=== PATIENT | male | born 1955 | race Caucasian/White ===

== ENCOUNTER → 2023-10-18 12:45 | Outpatient (REF) | payer MEDICARE, SELFPAY ==
[2023-10-18 14:24] LABS: PSA, Total - Diagnostic 4.49 ng/ml (0.0-4.0)
== END ==
LOC: REG 12:45
PROVIDERS: ATTENDING PHYSICIAN Specialist; FAMILY PHYSICIAN Internal Medicine Geriatric Medicine
DX: R97.20 Elevated prostate specific antigen [PSA] (principal)
CPT/HCPCS: 36415; 84153

== ENCOUNTER → 2023-12-16 07:30 | Outpatient (REF) | payer MEDICARE, SELFPAY | LOC: MRI 3T 07:30 | PROVIDERS: ATTENDING PHYSICIAN Specialist; FAMILY PHYSICIAN Internal Medicine Geriatric Medicine | DX: R97.20 Elevated prostate specific antigen [PSA] (principal); Z80.42 Family history of malignant neoplasm of prostate | CPT/HCPCS: 72197; A9575 ==

== ENCOUNTER → 2023-12-27 17:05 | Outpatient (REF) | payer MEDICARE, SELFPAY | LOC: CLAB 17:05 | PROVIDERS: ATTENDING PHYSICIAN Specialist | DX: R97.20 Elevated prostate specific antigen [PSA] (principal) | CPT/HCPCS: 88305; 88344 ==

== ENCOUNTER 2024-02-07 07:44 | Outpatient (RCR) | payer MEDICARE, SELFPAY | END 2024-02-07 23:59 | disposition home or self-care (01) | LOC: RPT 07:44 | PROVIDERS: ATTENDING PHYSICIAN Specialist; FAMILY PHYSICIAN Internal Medicine Geriatric Medicine | DX: M62.89 Other specified disorders of muscle (principal); C61 Malignant neoplasm of prostate; Z73.6 Limitation of activities due to disability | CPT/HCPCS: 97161; 97530 ==

== ENCOUNTER 2024-03-24 07:58 | Inpatient (IN) | payer MEDICARE, SELFPAY ==
[2024-03-18 06:46] VITALS: BMI 24.5
[2024-03-18 09:31] LABS: Hematocrit 44.8 % (39.0-52.0); Hemoglobin 15.7 g/dL (13.0-18.0); Mean Corpuscular Hgb 31.5 pg (27.0-31.0); Mean Platelet Volume 11.2 fL (7.4-10.4); Platelet Count 172 10^3/uL (130-400); Red Blood Cell Count 4.98 10^6/uL (4.70-6.10); Red Cell Dist. Width 12.1 % (11.5-14.5); White Blood Cell Count 5.9 10^3/uL (4.8-10.8)
[2024-03-18 09:35] LABS: INR 1.08
[2024-03-18 09:36] LABS: APTT 30.1 Sec (23.4-35.0)
[2024-03-18 10:24] LABS: Blood Urea Nitrogen 18 mg/dl (9-20); Calcium 10.1 mg/dl (8.4-10.2); Carbon Dioxide 27 mmol/L (22-30); Chloride 103 mmol/L (98-107); Estimated Creatinine Clearance 64 ml/min; Glucose 82 mg/dl (70-99); Potassium 4.7 mmol/L (3.5-5.1); Sodium 141 mmol/L (135-145); eGFR > 60.00
[2024-03-18 10:27] LABS: Urine Albumin Negative (Neg - Trace); Urine Bilirubin Negative (Negative); Urine Character Clear (Clear); Urine Color Straw; Urine Glucose Negative (Negative); Urine Ketone Negative (Negative); Urine Leukocyte Negative (Negative); Urine Nitrite Negative (Negative); Urine Occult Blood Negative (Negative); Urine Specific Gravity 1.005 (<1.030); Urine Urobilinogen Negative (Neg - 1+)
[2024-03-24] VITALS (18 sets, daily range): BP systolic 96–151; BP diastolic 54–100; BMI 24.5
[2024-03-24] MEDS: NORMOSOL-R 1000 IV ×2 (08:28→15:00)
[2024-03-24] MEDS: NEBCIN 480 MG/100 ML ENEMA 1 BOTTLE RECTAL (08:29)
--- NOTE | 2024-03-24 12:18 | W.IMMPOSTOP ---
Surgical Immed Post Op Note
-
Primary Surgeon: Jose Manuel
Assisting Surgeon: Kolby
Pre-op Diagnosis: Prostate cancer
Post-op Diagnosis: Same
Procedure Performed: Radical perineal prostatectomy, bladder neck tubularization
Anesthesia Type: GET
Specimen / Cultures: prostate/adnexa, bladder neck and urethral margins
Estimated Blood Loss: 100 ml
Complications: None
[2024-03-24 13:05] LABS: Hematocrit 42.1 % (39.0-52.0); Hemoglobin 14.7 g/dL (13.0-18.0)
[2024-03-24 13:20] LABS: Blood Urea Nitrogen 14 mg/dl (9-20); Calcium 9.1 mg/dl (8.4-10.2); Carbon Dioxide 26 mmol/L (22-30); Chloride 104 mmol/L (98-107); Estimated Creatinine Clearance 64 ml/min; Glucose 113 mg/dl (70-99); Potassium 4.9 mmol/L (3.5-5.1); Sodium 140 mmol/L (135-145); eGFR > 60.00
[2024-03-24] MEDS: TORADOL 15 MG IV ×2 (13:28→19:54)
[2024-03-24] MEDS: DETROL LA 4 MG PO (13:29)
[2024-03-24] MEDS: DILAUDID 0.5 MG IV (16:25)
--- NOTE | 2024-03-24 17:55 | PTCARENOTE ---
Patient received from PACU in bed; IVF infusing; Surgical site assessed with BATCH FREEZER; Tyrese drain present; 4x4 gauze with ABD pads and tape present; Patient states pain is a 3 out of 10 and this is acceptable to him; Patient denies N/V at this
time; Patient awake and alert; Call neves within reach; Spouse at bedside; Bed in lowest position, wheels locked; Assessment ongoing
--- NOTE | 2024-03-24 18:00 | PTCARENOTE ---
Patient noted to be tachycardic since being in PACU; Per WET [employer] CONVEYOR TENDER Dr. Richard is aware; Plan of care ongoing
[2024-03-24] MEDS: COLACE PO (18:06)
[2024-03-24] MEDS: TYLENOL 650 MG PO (19:54)
[2024-03-24] MEDS: POLYSPORIN/DOUBLE ANTIBIOTIC 1 APPLIC TOPICAL (19:55)
[2024-03-24] MEDS: SINGULAIR 10 MG PO (21:23)
[2024-03-24] MEDS: VALIUM INJECTION 5 MG IV (21:23)
[2024-03-24] MEDS: PEPCID 20 MG PO (21:23)
[2024-03-24] MEDS: ZETIA 10 MG PO (21:23)
[2024-03-25] MEDS: NORMOSOL-R 1000 IV ×2 (00:22→10:02)
[2024-03-25] MEDS: TORADOL 15 MG IV ×4 (00:23→18:50)
[2024-03-25] MEDS: TYLENOL 650 MG PO ×4 (01:14→18:49)
[2024-03-25 03:06] VITALS: BP 117/76
[2024-03-25 07:35] LABS: Hematocrit 39.2 % (39.0-52.0); Hemoglobin 13.7 g/dL (13.0-18.0); Mean Corp Hgb Conc. 34.9 g/dL (33.0-37.0); Mean Corpuscular Hgb 32.1 pg (27.0-31.0); Mean Corpuscular Volume 91.8 fL (80.0-94.0); Mean Platelet Volume 10.6 fL (7.4-10.4); Platelet Count 149 10^3/uL (130-400); Red Blood Cell Count 4.27 10^6/uL (4.70-6.10); Red Cell Dist. Width 12.3 % (11.5-14.5); White Blood Cell Count 16.9 10^3/uL (4.8-10.8)
[2024-03-25 07:45] VITALS: BP 130/79
--- NOTE | 2024-03-25 08:09 | W.PN.SURGUPD ---
Surgical Update
Surgical Update
Stable 1 day s/p radical perineal prostatectomy
Afeb
VSS
Modest leukocytosis
Urine clear
Dressing dry
Tolerating diet
---
Increase activity today
[2024-03-25] MEDS: VITAMIN D3 (cholecalciferol) 125 MCG PO (08:13)
[2024-03-25] MEDS: ZYRTEC 10 MG PO (08:14)
[2024-03-25] MEDS: COLACE 100 MG PO ×3 (08:14→18:50)
[2024-03-25] MEDS: PROTONIX 40 MG PO (08:14)
[2024-03-25] MEDS: POLYSPORIN/DOUBLE ANTIBIOTIC 1 APPLIC TOPICAL ×2 (08:19→20:20)
[2024-03-25 09:24] LABS: Blood Urea Nitrogen 18 mg/dl (9-20); Calcium 9.5 mg/dl (8.4-10.2); Carbon Dioxide 23 mmol/L (22-30); Chloride 107 mmol/L (98-107); Estimated Creatinine Clearance 71 ml/min; Glucose 104 mg/dl (70-99); Potassium 4.4 mmol/L (3.5-5.1); Sodium 142 mmol/L (135-145); eGFR > 60.00
[2024-03-25] MEDS: ROCEPHIN 1000 MG IV (10:00)
[2024-03-25] MEDS: STERILE WATER FOR INJECTION 10 ML IV (10:01)
[2024-03-25 11:40] VITALS: BP 127/78
[2024-03-25] MEDS: NORMOSOL-R IV (14:17)
[2024-03-25 15:35] VITALS: BP 127/71
[2024-03-25] MEDS: NON-FORMULARY ITEM 1 UNIT NASAL (20:18)
[2024-03-25] MEDS: SINGULAIR 10 MG PO (21:59)
[2024-03-25] MEDS: PEPCID 20 MG PO (21:59)
[2024-03-25] MEDS: ZETIA 10 MG PO (21:59)
[2024-03-25 23:12] VITALS: BP 115/63
[2024-03-26] MEDS: TYLENOL 650 MG PO (02:36)
[2024-03-26] MEDS: PERCOCET 5/325 1 TABLET PO ×3 (06:04→14:11)
[2024-03-26] MEDS: VITAMIN D3 (cholecalciferol) 125 MCG PO (07:27)
[2024-03-26] MEDS: ZYRTEC 10 MG PO (07:27)
[2024-03-26] MEDS: PROTONIX 40 MG PO (07:27)
[2024-03-26] MEDS: COLACE 100 MG PO ×2 (07:27→12:14)
[2024-03-26] MEDS: NON-FORMULARY ITEM 1 UNIT NASAL ×2 (07:28)
[2024-03-26] MEDS: POLYSPORIN/DOUBLE ANTIBIOTIC 1 APPLIC TOPICAL (07:33)
[2024-03-26 07:40] VITALS: BP 146/78
--- NOTE | 2024-03-26 08:38 | CM ---
met with patient at bedside.patient lives with his in [facility] with 1 jo,his bed and bath is on the second level,he amb i,is i with his adlhis pcp is dr lagunas.confirmed his pharmacy.
patient with prostate cancer is sp radical perineal prostatectomy,pain is controlled,he has a keenan.referral made to gena with [facility] for keenan and wound management.plan dc home with [facility].wfe to transport home.
[2024-03-26] MEDS: ROCEPHIN 1000 MG IV (10:02)
[2024-03-26] MEDS: STERILE WATER FOR INJECTION 10 ML IV (10:02)
--- NOTE | 2024-03-26 11:03 | W.DS.TRANS ---
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
-
Discharge Instructions:
Sleep Apnea Risk Low
Instructions:
Stand-Alone Forms:
Changes to Home Medications: No
Discharge Medications:
DC Medications w/original date entered in [employer]
Mold And Pollen Allergy Shots 1 unit SC Q5W Allergies 03/18/24
Yellow Jacket Venom Treatment 1 unit SC Q5W Allergies 03/18/24
aspirin 81 mg tablet,delayed release 81 mg PO DAILY Blood Clot Prevention/Tx 03/18/24
azelastine 137 mcg (0.1 %) nasal spray 2 spray intranasal BID Congestion 03/18/24
cetirizine 10 mg tablet (Zyrtec) 10 mg PO DAILY Allergies 03/18/24
cholecalciferol (vitamin D3) 125 mcg (5,000 unit) tablet (Vitamin D3) 125 mcg PO DAILY Supplement 03/18/24
evolocumab 140 mg/mL subcutaneous syringe (Repatha Syringe) 140 mg SC Q2W High Cholesterol 03/18/24
ezetimibe 10 mg tablet (Zetia) 10 mg PO HS High Cholesterol 03/18/24
famotidine 20 mg tablet 20 mg PO HS Gastrointestinal Issue 03/18/24
fluticasone propionate 50 mcg/actuation nasal spray,suspension 1 spray intranasal DAILY Congestion 03/18/24
glucosamine-chondroitin 250 mg-200 mg tablet (Osteo Bi-Flex) 2 tab PO DAILY Supplement 03/18/24
montelukast 10 mg tablet 10 mg PO HS asthma 03/18/24
omeprazole 40 mg capsule,delayed release 40 mg PO DAILY Gastrointestinal Issue 03/18/24
albuterol 90 mcg/actuation aerosol inhaler 90 mcg inhalation PRN PRN allergies 03/24/24
Home Medication Changes
Pending Results: No
Total time spent discharging patient (in min): 25 minutes
--- NOTE | 2024-03-26 11:34 | CM ---
Reviewed the chart notes and spoke with the patient and his spouse at the bedside. Patient is for discharge. Patient and spouse requesting [facility]. Referral sent. Patient's spouse will transport the patient home. CM continues to be available to
patient/family and is monitoring medical plan for needs at discharge.
Plan: Discharge to home with VN services.
--- NOTE | 2024-03-26 13:33 | PTCARENOTE ---
Patient and spouse educated on keenan leg bag and overnight bag; Patient given supplies for home; Both patient and spouse verbalized understanding of instruction
[2024-03-26 14:35] VITALS: BP 118/74
== END 2024-03-26 14:53 | disposition home health service (06) | DRG 708 ==
LOC: 2 SOUTH 07:58
PROVIDERS: ADMITTING PHYSICIAN Specialist; FAMILY PHYSICIAN Internal Medicine Geriatric Medicine
PROC: 0VT04ZZ Resection of Prostate, Percutaneous Endoscopic Approach (ICD-10-PCS; 2024-03-24)
PROC: 0VT34ZZ Resection of Bilateral Seminal Vesicles, Percutaneous Endoscopic Approach (ICD-10-PCS; 2024-03-24)
PROC: 0VTQ4ZZ Resection of Bilateral Vas Deferens, Percutaneous Endoscopic Approach (ICD-10-PCS; 2024-03-24)
DX: C61 Malignant neoplasm of prostate (principal)
CPT/HCPCS: 88305; 88309; 88332; 36415; 80048; 81003; 85014; 85018; 85027; 85610; 85730; 86850; 86900; 86901; 88331; 93005; A4648

== ENCOUNTER 2024-05-05 06:41 | Outpatient (RCR) | payer MEDICARE, SELFPAY | END 2024-05-05 23:59 | disposition home or self-care (01) | LOC: RPT 06:41 | PROVIDERS: ATTENDING PHYSICIAN Specialist; FAMILY PHYSICIAN Internal Medicine Geriatric Medicine | DX: C61 Malignant neoplasm of prostate (principal); M62.89 Other specified disorders of muscle; N39.3 Stress incontinence (female) (male); R10.2 Pelvic and perineal pain; Z73.6 Limitation of activities due to disability | CPT/HCPCS: 97110; 97140; 97164; 97530 ==

== ENCOUNTER → 2024-05-05 07:21 | Outpatient (REF) | payer MEDICARE, SELFPAY ==
[2024-05-05 08:48] LABS: % Eosinophils 4.4 % (0-6); % Immature Granulocytes 0.2 % (0-0.5); % Lymphocytes 34.9 % (20.5-51.1); % Monocytes 11.3 % (1.7-9.3); % Neutrophils 48.2 % (42.2-75.2); Absolute Basophils 0.1 10^3/uL (0-0.2); Absolute Eosinophils 0.3 10^3/uL (0-0.7); Absolute Lymphocytes 2.1 10^3/uL (1.2-3.4); Absolute Monocytes 0.7 10^3/uL (0.1-0.6); Absolute Neutrophils 2.9 10^3/uL (1.4-6.5); Hematocrit 46.7 % (39.0-52.0); Hemoglobin 16.5 g/dL (13.0-18.0); Mean Corp Hgb Conc. 35.3 g/dL (33.0-37.0); Mean Corpuscular Hgb 31.7 pg (27.0-31.0); Mean Corpuscular Volume 89.6 fL (80.0-94.0); Mean Platelet Volume 10.7 fL (7.4-10.4); Nucleated Red Blood Cells % 0 % (-); Platelet Count 161 10^3/uL (130-400); Red Blood Cell Count 5.21 10^6/uL (4.70-6.10); White Blood Cell Count 5.9 10^3/uL (4.8-10.8)
[2024-05-05 09:02] LABS: ALT (SGPT) 46 U/L (0-50); AST (SGOT) 38 U/L (17-59); Albumin 5.3 g/dl (3.5-5.0); Alkaline Phosphatase 76 U/L (38-126); Blood Urea Nitrogen 17 mg/dl (9-20); Calcium 10.5 mg/dl (8.4-10.2); Carbon Dioxide 26 mmol/L (22-30); Chloride 104 mmol/L (98-107); Glucose 83 mg/dl (70-99); Sodium 142 mmol/L (135-145); Total Bilirubin 1.5 mg/dl (0.2-1.3); Total Protein 7.8 g/dl (6.3-8.2); eGFR > 60.00
[2024-05-05 09:36] LABS: Potassium 4.1 mmol/L (3.5-5.1)
[2024-05-06 22:30] LABS: Beef <0.10 kU/L (<=0.34); Garlic <0.10 kU/L (<=0.34); Pork <0.10 kU/L (<=0.34)
[2024-05-06 22:40] LABS: Clam <0.10 kU/L (<=0.34); Codfish <0.10 kU/L (<=0.34); Corn <0.10 kU/L (<=0.34); Egg White <0.10 kU/L (<=0.34); IgE 26 kU/L (<=214); Milk (Cow's) <0.10 kU/L (<=0.34); Peanut <0.10 kU/L (<=0.34); Scallop <0.10 kU/L (<=0.34); Shrimp <0.10 kU/L (<=0.34); Soybean <0.10 kU/L (<=0.34); Walnut/Black Walnut <0.10 kU/L (<=0.34); Wheat <0.10 kU/L (<=0.34)
== END ==
LOC: REG 07:21
PROVIDERS: ATTENDING PHYSICIAN Internal Medicine; FAMILY PHYSICIAN Internal Medicine Geriatric Medicine
DX: Z91.018 Allergy to other foods (principal)
CPT/HCPCS: 36415; 80053; 82785; 83520; 85025; 86003; 86160

== ENCOUNTER 2024-06-05 13:38 | Outpatient (RCR) | payer MEDICARE, SELFPAY | END 2024-06-05 23:59 | disposition home or self-care (01) | LOC: RPT 13:38 | PROVIDERS: ATTENDING PHYSICIAN Specialist; FAMILY PHYSICIAN Internal Medicine Geriatric Medicine | DX: C61 Malignant neoplasm of prostate (principal); M62.89 Other specified disorders of muscle; N39.3 Stress incontinence (female) (male); R10.2 Pelvic and perineal pain; Z73.6 Limitation of activities due to disability | CPT/HCPCS: 97110; 97140; 97164; 97530 ==

== ENCOUNTER → 2024-06-09 07:16 | Outpatient (REF) | payer MEDICARE, SELFPAY ==
[2024-06-09 08:57] LABS: ALT (SGPT) 46 U/L (0-50); AST (SGOT) 37 U/L (17-59); Albumin 4.8 g/dl (3.5-5.0); Alkaline Phosphatase 66 U/L (38-126); Blood Urea Nitrogen 18 mg/dl (9-20); Calcium 10.1 mg/dl (8.4-10.2); Carbon Dioxide 23 mmol/L (22-30); Chloride 106 mmol/L (98-107); Glucose 77 mg/dl (70-99); Potassium 4.4 mmol/L (3.5-5.1); Sodium 146 mmol/L (135-145); Total Bilirubin 1.6 mg/dl (0.2-1.3); Total Protein 7.1 g/dl (6.3-8.2); eGFR > 60.00
[2024-06-09 09:10] LABS: PSA, Total - Diagnostic < 0.06 ng/ml (0.0-4.0)
[2024-06-11 11:10] LABS: IgE 28 kU/L (<=214)
[2024-06-11 22:07] LABS: 24 Hour Urine Total Volume Random mL; Urine Collection Length Random hr; Urine Free Lambda Light Chains 1.92 mg/L (0.00-3.79)
== END ==
LOC: REG 07:16
PROVIDERS: ATTENDING PHYSICIAN Specialist; FAMILY PHYSICIAN Internal Medicine Geriatric Medicine; REFERRING PHYSICIAN Internal Medicine
DX: C61 Malignant neoplasm of prostate (principal); R73.9 Hyperglycemia, unspecified; T78.3XXD Angioneurotic edema, subsequent encounter
CPT/HCPCS: 36415; 80053; 82784; 82785; 83521; 84153; 84155; 84156; 84165; 86334; 86335

== ENCOUNTER 2024-07-14 06:39 | Outpatient (RCR) | payer MEDICARE, SELFPAY | END 2024-07-14 23:59 | disposition home or self-care (01) | LOC: RPT 06:39 | PROVIDERS: ATTENDING PHYSICIAN Specialist; FAMILY PHYSICIAN Internal Medicine Geriatric Medicine | DX: N39.3 Stress incontinence (female) (male) (principal); M62.89 Other specified disorders of muscle; C61 Malignant neoplasm of prostate; R10.2 Pelvic and perineal pain; Z73.6 Limitation of activities due to disability | CPT/HCPCS: 97140; 97530 ==

== ENCOUNTER → 2024-08-27 07:03 | Outpatient (REF) | payer MEDICARE, SELFPAY ==
[2024-08-27 07:49] LABS: % Basophils 0.7 % (0-2); % Eosinophils 2.6 % (0-6); % Immature Granulocytes 0.4 % (0-0.5); % Lymphocytes 41.5 % (20.5-51.1); % Monocytes 10.9 % (1.7-9.3); % Neutrophils 43.9 % (42.2-75.2); Absolute Eosinophils 0.2 10^3/uL (0-0.7); Absolute Lymphocytes 2.4 10^3/uL (1.2-3.4); Absolute Monocytes 0.6 10^3/uL (0.1-0.6); Absolute Neutrophils 2.5 10^3/uL (1.4-6.5); Hematocrit 45.4 % (39.0-52.0); Hemoglobin 15.8 g/dL (13.0-18.0); Mean Corp Hgb Conc. 34.8 g/dL (33.0-37.0); Mean Corpuscular Hgb 31.3 pg (27.0-31.0); Mean Corpuscular Volume 90.1 fL (80.0-94.0); Mean Platelet Volume 10.2 fL (7.4-10.4); Nucleated Red Blood Cells % 0 % (-); Platelet Count 153 10^3/uL (130-400); Red Blood Cell Count 5.04 10^6/uL (4.70-6.10); Red Cell Dist. Width 12.1 % (11.5-14.5); White Blood Cell Count 5.7 10^3/uL (4.8-10.8)
[2024-08-27 08:21] LABS: ALT (SGPT) 48 U/L (0-50); AST (SGOT) 37 U/L (17-59); Albumin 4.9 g/dl (3.5-5.0); Alkaline Phosphatase 62 U/L (38-126); Blood Urea Nitrogen 13 mg/dl (9-20); Carbon Dioxide 29 mmol/L (22-30); Chloride 103 mmol/L (98-107); Glucose 97 mg/dl (70-99); HDL Cholesterol 47 mg/dl; LDL Cholesterol, Calculated 37 mg/dl; Potassium 4.8 mmol/L (3.5-5.1); Sodium 143 mmol/L (135-145); Total Bilirubin 1.6 mg/dl (0.2-1.3); Total Cholesterol 118 mg/dl (50-199); Total Protein 7.5 g/dl (6.3-8.2); Triglyceride 174 mg/dl (10-149); Very Low Density Lipoprotein 34 mg/dl (0-30); eGFR > 60.00
[2024-08-27 08:46] LABS: PSA, Total - Diagnostic < 0.06 ng/ml (0.0-4.0)
== END ==
LOC: REG 07:03
PROVIDERS: ATTENDING PHYSICIAN Specialist; FAMILY PHYSICIAN Internal Medicine Geriatric Medicine
DX: C61 Malignant neoplasm of prostate (principal); E78.00 Pure hypercholesterolemia, unspecified
CPT/HCPCS: 36415; 80053; 80061; 84153; 85025

== ENCOUNTER → 2024-12-17 07:10 | Outpatient (REF) | payer MEDICARE, SELFPAY ==
[2024-12-17 08:00] LABS: % Eosinophils 3.1 % (0-6); % Immature Granulocytes 0.3 % (0-0.5); % Lymphocytes 42.9 % (20.5-51.1); % Monocytes 9.7 % (1.7-9.3); Absolute Basophils 0.1 10^3/uL (0-0.2); Absolute Eosinophils 0.2 10^3/uL (0-0.7); Absolute Lymphocytes 2.5 10^3/uL (1.2-3.4); Absolute Monocytes 0.6 10^3/uL (0.1-0.6); Absolute Neutrophils 2.5 10^3/uL (1.4-6.5); Hemoglobin 15.7 g/dL (13.0-18.0); Mean Corp Hgb Conc. 34.9 g/dL (33.0-37.0); Mean Corpuscular Hgb 31.5 pg (27.0-31.0); Mean Corpuscular Volume 90.4 fL (80.0-94.0); Mean Platelet Volume 10.2 fL (7.4-10.4); Nucleated Red Blood Cells % 0 % (-); Platelet Count 157 10^3/uL (130-400); Red Blood Cell Count 4.98 10^6/uL (4.70-6.10); Red Cell Dist. Width 12.3 % (11.5-14.5); White Blood Cell Count 5.8 10^3/uL (4.8-10.8)
[2024-12-17 10:08] LABS: ALT (SGPT) 46 U/L (0-50); AST (SGOT) 33 U/L (17-59); Albumin 5.1 g/dl (3.5-5.0); Alkaline Phosphatase 82 U/L (38-126); Blood Urea Nitrogen 17 mg/dl (9-20); Calcium 10.1 mg/dl (8.4-10.2); Carbon Dioxide 28 mmol/L (22-30); Chloride 104 mmol/L (98-107); Glucose 95 mg/dl (70-99); HDL Cholesterol 44 mg/dl; LDL Cholesterol, Calculated 73 mg/dl; Potassium 4.3 mmol/L (3.5-5.1); Sodium 143 mmol/L (135-145); Total Bilirubin 1.6 mg/dl (0.2-1.3); Total Cholesterol 156 mg/dl (50-199); Total Protein 7.5 g/dl (6.3-8.2); Triglyceride 196 mg/dl (10-149); Very Low Density Lipoprotein 39 mg/dl (0-30); eGFR > 60.00
[2024-12-17 10:32] LABS: PSA, Total - Diagnostic < 0.06 ng/ml (0.0-4.0)
== END ==
LOC: REG 07:10
PROVIDERS: ATTENDING PHYSICIAN Internal Medicine Geriatric Medicine; FAMILY PHYSICIAN Specialist; REFERRING PHYSICIAN Internal Medicine Hematology & Oncology
DX: E78.00 Pure hypercholesterolemia, unspecified (principal); D68.9 Coagulation defect, unspecified; D47.2 Monoclonal gammopathy; Z87.892 Personal history of anaphylaxis; C61 Malignant neoplasm of prostate
CPT/HCPCS: 36415; 80053; 80061; 82784; 83521; 84153; 84155; 84165; 85025; 86334

== ENCOUNTER → 2025-02-09 10:10 | Outpatient (REF) | payer MEDICARE, SELFPAY | LOC: WDC 10:10 | PROVIDERS: ATTENDING PHYSICIAN Internal Medicine Geriatric Medicine | DX: N63.42 Unspecified lump in left breast, subareolar (principal) | CPT/HCPCS: 76642; 77062; 77066 ==

== ENCOUNTER 2025-03-12 11:26 | Emergency (ER) | payer MEDICARE, SELFPAY ==
[2025-03-12] VITALS (7 sets, daily range): BP systolic 115–158; BP diastolic 67–110; BMI 25.2
[2025-03-12] MEDS: ADRENALIN 0.3 MG IM (12:39)
--- NOTE | 2025-03-12 12:43 | ED.GENMED ---
History of Present Illness
General
Chief Complaint: Allergic Reaction
Source: patient and spouse
Exam Limitations: none
Time Seen by Provider: 03/12/25 12:24
Nursing documentation reviewed up to this point in time: agreed with
History of Present Illness
History of Present Illness:
69-year-old male with a past medical history as noted presents to the ER with concern for allergic reaction. Patient was stung by multiple bees last night around 7 PM. He says he was stung in the upper back and chest. He has a history of severe
allergy to bees; he was having pruritus, chest tightness and wheezing as well as some nausea and was taken to [facility] by EMS. There he was treated with steroids and antihistamines and was observed in the emergency room. His symptoms improved
and he was ultimately discharged home. He says that this morning when he woke up he was having severe hoarseness of his voice, return of tightness in his chest with some shortness of breath. He was having some minor pruritus and nausea. He called
his green chain offbearer Dr. Cummins who recommended he come to the emergency room to be evaluated for rebound allergic type symptoms. Aside from above symptoms he denies any abdominal cramping or diarrhea. He denies any dizziness/lightheadedness. Denies
other complaints.
Past History
Past History
ED Past Medical History: None
ED Past Surgical History: None
Social History
Tobacco: Non-smoker
Review of Systems
Review of Systems
All Other Systems: ROS reviewed and negative except as documented in HPI and ROS
Constitutional: Denies fever
EENT: Reports other (Hoarseness)
Respiratory: Reports trouble breathing; Denies cough
Cardiac: Reports chest pain (Chest tightness); Denies syncope
ABD/GI: Reports nausea; Denies abdominal pain, vomiting or diarrhea
: Denies flank pain
Musculoskeletal: Denies neck pain or back pain
Skin: Reports itching and other (Flushing)
Neurological: Denies dizzy or headache
Phy Exam
Physical Exam
Physical Exam:
General: Awake, alert; no acute distress
Head: Normocephalic, atraumatic
Eyes: Conjunctiva normal, pupils equal round and reactive to light bilaterally
Throat: Airway intact, handling secretions, no drooling; he does have some hoarseness of his voice noted but no swelling of the tongue or uvula, no erythema noted in the oropharynx
Neck: Trachea midline, supple without meningismus
Lungs: Clear to auscultation bilaterally, no wheezing, rales, rhonchi�no wheezing appreciated
Heart: Tachycardia with regular rhythm, no murmurs, gallops, or rubs
Abd: Soft, non distended, nontender
Neuro: No gross deficits
Skin: Skin of the face and chest flushed but no hives noted
Extremities: No edema in extremities, equal pulses in all extremities
Scores
Heart Failure Risk
Heart Failure Risk Score: Not Applicable
Heart Score for Chest Pain Patients
STEMI patient?: Not applicable
Withdrawal Assessment of Alcohol
Withdrawal Assessment Completed?: Not applicable
Course
Orders/Labs/Results
Orders:
Orders
03/12/25
Electrocardiogram (*1) Stat
Comment: DONE
03/12/25 12:27
Diphenhydramine [Benadryl] 50 mg .ROUTE .STK-MED ONE
03/12/25 12:28
Dexamethasone Sod Phosphate [Decadron] 20 mg .ROUTE .STK-MED ONE
EPINEPHrine PF [Adrenalin] 1 mg .ROUTE .STK-MED ONE
Famotidine [Pepcid] 20 mg .ROUTE .STK-MED ONE
Famotidine [Pepcid] 20 mg .ROUTE .STK-MED ONE
03/12/25 12:38
EPINEPHrine PF [Adrenalin] 0.3 mg IM NOW STA
03/12/25 12:40
0.9% Sodium Chloride 500 ml [Nss] 500 ml IV BOLUS
Diphenhydramine [Benadryl] 25 mg IV NOW STA
Famotidine [Pepcid] 20 mg IV NOW STA
MethylPREDNISolone PF [Solu-Medrol Pf] 125 mg IV NOW STA
03/12/25 12:59
Complete Blood Count/With Diff Urgent
Comprehensive Metabolic Panel Urgent
03/12/25 14:21
Diphenhydramine [Benadryl] 25 mg IV NOW STA
03/12/25 14:22
ENT CONSULT Urgent
Consulting Provider: Chele Esquivel
Was physician already notified: Yes
Abnormal Lab Results
03/12/25
12:59
WBC 19.4 H 10^3/uL
(4.8-10.8)
MCH 31.8 H pg
(27.0-31.0)
MPV 10.7 H fL
(7.4-10.4)
Abs Immat Gran (auto) 0.1 H 10^3/uL
(0-0.05)
Absolute Neuts (auto) 16.0 H 10^3/uL
(1.4-6.5)
Absolute Monos (auto) 1.7 H 10^3/uL
(0.1-0.6)
Neutrophils % 82.5 H %
(42.2-75.2)
Lymphocytes % 7.8 L %
(20.5-51.1)
Sodium 146 H mmol/L
(135-145)
Chloride 109 H mmol/L
(98-107)
Calcium 10.6 H mg/dl
(8.4-10.2)
Albumin 5.5 H g/dl
(3.5-5.0)
03/12/25 12:59
03/12/25 12:59
Vital Signs
Initial and Last Documented VS:
Initial Vital Signs
Temp Pulse Resp BP Pulse Ox
36.9 C 112 20 153/90 96
03/12/25 11:39 03/12/25 11:39 03/12/25 11:39 03/12/25 11:39 03/12/25 11:39
Last Documented Vital Signs
Temp Pulse Resp BP Pulse Ox
36.9 C 105 15 145/72 95
03/12/25 11:39 03/12/25 13:00 03/12/25 13:00 03/12/25 13:00 03/12/25 13:00
MDM/Problems Addressed
Differential Diagnosis Includes:
Anaphylaxis, angioedema, URI, GERD
MDM/Problems Addressed:
69-year-old male presents to the ER with concern for allergic reaction�was stung by bee last night and was treated for allergic reaction at [facility] with improvement in symptoms after steroids and antihistamines. This morning woke up with
return of symptoms and worsening of worsening hoarseness of the voice, referred to the ER by his green chain offbearer. Vitals were significant for hypertension and tachycardia, no tachypnea or hypoxia. Physical exam as above. Will plan to treat with IM
epinephrine, IV steroids and antihistamines. Case discussed with ENT for evaluation for possible vocal cord edema. At this point although he does have some hoarseness he has no signs of respiratory compromise�hold off on advanced airway management
for now but if not improving or if worsening at any point would have low threshold for intubation. Monitor very closely reassess after the above.
Reassessment after meds as above patient reports subjective improvement in his symptoms. He certainly appears much less flushed. No longer has nausea. Vital signs have been stable. He still has some residual hoarseness but says he feels it is
generally improving. Will continue to monitor. We did send screening labs which were significant for leukocytosis, likely related to recent steroids.
Reassessment patient having some rebound of pruritus and nausea; no shortness of breath/chest tightness. Hoarseness has been stable. Vital signs have been stable. Will repeat Benadryl. Hold on repeat epinephrine for the time being. Awaiting ENT
assessment.
Patient seen by ENT and no swelling noted on NPL at bedside--airway widely patent without edema or erythema. No wheezing on lung auscultation. Recommended Medrol Dosepak. Can follow-up with green chain offbearer as outpatient. Patient comfortable with this
plan. He has been here for 4+ hours with stable objective assessment. All questions answered.
Chronic conditions affecting care:
Multiple allergies
Acute Exacerbation and/or Progression of Chronic Illness:
Hypertensive
Acute Exacerbation and/or Progression of Chronic Illness: HTN
*Pulse Oximetry
SaO2: 96
Oxygen Mode of Delivery: Room air
Patient hypoxic: no (96%)
*Critical Care Note
Total Time (30-74mins, 75-104mins- exclusive of procedures): Not Applicable
Data Reviewed
Source: patient, records, spouse and physician (Call in from his green chain offbearer)
Patient Management
Discussion with other providers: Pin Drafting Machine Operator (Discussed with ENT)
ED Attending Note
-
Portions of this chart may have been created with voice recognition software.� Occasional wrong word or��sound alike� substitutions may have occurred due to the inherent limitations of voice recognition software.
Discharge Plan
Departure
Patient Disposition: Home (Routine Discharge)
Date of Disposition: 03/12/25
Time of Disposition: 15:55
Patient with high blood pressure during this ER visit?: Yes
Discharge Problem:
Allergic reaction
Instructions: Allergic reaction - ED discharge instructions
Prescriptions:
New
methylprednisolone [Medrol (Kyle)] 4 mg tablets,dose pack
See Rx Instructions .ROUTE .COMPLEX Qty: 21 0RF
Rx Instructions:
for 6 days
epinephrine [EpiPen 2-Kyle] 0.3 mg/0.3 mL auto-injector
0.3 mg IM ONCE Qty: 2 0RF
No Action
cetirizine [Zyrtec] 10 mg Tablet
10 mg PO DAILY
omeprazole 40 mg Capsule,Delayed Release(Dr/Ec)
40 mg PO DAILY
aspirin 81 mg Tablet,Delayed Release (Dr/Ec)
81 mg PO DAILY
famotidine 20 mg Tablet
20 mg PO HS
montelukast 10 mg Tablet
10 mg PO HS
azelastine 137 mcg (0.1 %) [place],Non-Aerosol
2 spray INTRANASAL BID
fluticasone propionate 50 mcg/actuation [place],Suspension
1 spray INTRANASAL DAILY
ezetimibe [Zetia] 10 mg Tablet
10 mg PO HS
glucosamine-chondroitin [Osteo Bi-Flex] 250-200 mg Tablet
2 tab PO DAILY
cholecalciferol (vitamin D3) [Vitamin D3] 125 mcg (5,000 unit) Tablet
125 mcg PO DAILY
Repatha Syringe 140 mg/mL Syringe
140 mg SC Q2W
Mold And Pollen Allergy Shots
1 unit SC Q5W
Yellow Jacket Venom Treatment
1 unit SC Q5W
albuterol 90 mcg/actuation Aerosol
90 mcg INHALATION PRN PRN (Reason: allergies)
Referrals:
Ari Dove MD [Family Provider, Internal Medicine] - Follow up in 5-7 days
Activity Restrictions/Additional Instructions:
Thank you for visiting the Emergency Department at [facility].
1. Please schedule a follow up appointment as directed. Call first thing tomorrow morning to make an appointment.
2. If indicated, please take your medications as instructed and indicated on discharge paperwork.
3. If any of your symptoms do not improve, or persist, or become more severe within 6-12 hours, please return to the emergency department for further care.
4. Please return to the emergency department if you develop a headache, neck pain/stiffness, fever greater than 100.4F, chest pain, shortness of breath, persistent nausea, vomiting, slurred speech, difficulty walking, numbness/tingling, weakness,
signs of infection or any other symptoms that are worrisome to you.
Please call [phone] if you have any questions.
Interventions
Interventions:
*Risk Screen - Suicide Last Done: 03/12/25 12:30
*General Assessment Last Done: 03/12/25 12:30
*Neglect/Abuse Screening Last Done: 03/12/25 12:30
*ED- Fall Risk Assessment Last Done: 03/12/25 12:30
*ED COVID-19 Vaccine History Last Done: 03/12/25 12:30
ED- Cardiac Assessment Last Done: 03/12/25 12:30
ED- Pulmonary Assessment Last Done: 03/12/25 12:30
ED-Skin Assessment Last Done: 03/12/25 12:30
Discharge Date and Time
Print Language: CZECH
[2025-03-12] MEDS: NSS 500 IV (12:46)
[2025-03-12] MEDS: BENADRYL 25 MG IV ×2 (12:46→14:27)
[2025-03-12] MEDS: PEPCID 20 MG IV (12:47)
[2025-03-12] MEDS: SOLU-MEDROL PF 125 MG IV (13:00)
[2025-03-12 13:10] LABS: % Basophils 0.2 % (0-2); % Eosinophils 0.1 % (0-6); % Immature Granulocytes 0.5 % (0-0.5); % Lymphocytes 7.8 % (20.5-51.1); % Monocytes 8.9 % (1.7-9.3); % Neutrophils 82.5 % (42.2-75.2); Absolute Immature Granulocytes 0.1 10^3/uL (0-0.05); Absolute Lymphocytes 1.5 10^3/uL (1.2-3.4); Absolute Monocytes 1.7 10^3/uL (0.1-0.6); Hematocrit 46.1 % (39.0-52.0); Hemoglobin 16.6 g/dL (13.0-18.0); Mean Corpuscular Hgb 31.8 pg (27.0-31.0); Mean Corpuscular Volume 88.3 fL (80.0-94.0); Mean Platelet Volume 10.7 fL (7.4-10.4); Nucleated Red Blood Cells % 0 % (-); Platelet Count 181 10^3/uL (130-400); Red Blood Cell Count 5.22 10^6/uL (4.70-6.10); Red Cell Dist. Width 12.1 % (11.5-14.5); White Blood Cell Count 19.4 10^3/uL (4.8-10.8)
[2025-03-12 13:24] LABS: ALT (SGPT) 36 U/L (0-50); AST (SGOT) 34 U/L (17-59); Albumin 5.5 g/dl (3.5-5.0); Alkaline Phosphatase 65 U/L (38-126); Blood Urea Nitrogen 17 mg/dl (9-20); Calcium 10.6 mg/dl (8.4-10.2); Carbon Dioxide 23 mmol/L (22-30); Chloride 109 mmol/L (98-107); Estimated Creatinine Clearance 65 ml/min; Glucose 99 mg/dl (70-99); Potassium 4.4 mmol/L (3.5-5.1); Sodium 146 mmol/L (135-145); Total Bilirubin 1.3 mg/dl (0.2-1.3); Total Protein 8.1 g/dl (6.3-8.2); eGFR > 60.00
--- NOTE | 2025-03-12 16:16 | CON.MD ---
Consultation - Medical
-
Chief complaint: Flushing and face, stung by bees yesterday, hoarseness and shortness of breath
History of present illness: This 69-year-old gentleman, known to me for allergies and eustachian tube dysfunction, presents a day after having been stung by 3 bees. He has a history of allergies. He experienced significant immediate reaction and
was in the [facility] emergency room last night where he received Solu-Medrol. He did okay and then experienced a more significant reaction this morning which required a return trip to the emergency room, this time to [facility]. The
patient was noted to have flushing and hoarseness. His breathing was a little tight. His oxygen saturations were low and his heart rate well over 100. He is doing significantly better now. I was asked to evaluate the patient's airway.
Past medical history:
Chronic illnesses: Allergies, adenocarcinoma of the prostate, history of eustachian tube dysfunction
Allergies: Ciprofloxacin, latex, levofloxacin, lidocaine, moxifloxacin, quinolones, yellow jackets
Home medications: Albuterol 90 mcg p.o. as needed, aspirin 81 mg p.o. daily, Astelin 2 sprays nostril twice a day as needed, cetirizine 10 mg p.o. daily, cholecalciferol 125 micrograms p.o. daily, EpiPen 0.3 mg IM as needed, ezetimibe 10 mg p.o.
daily famotidine 20 mg p.o. daily, Flonase 2 sprays nostril every day, Osteo Bi-Flex 2 tablets p.o. daily, allergy shots, omeprazole 20 mg p.o. daily, montelukast 10 mg p.o. nightly, Repatha syringe 140 mg SQ every 2 hours, yellowjacket venom
treatment as needed
Family history: Asked and is noncontributory for this problem
Hospitalizations: The patient has been hospitalized for prostate cancer, anaphylaxis
Past surgical history: The patient has undergone bilateral myringotomy and tubes in the past
Review of systems: The patient has some hoarseness and shortness of breath is improved compared with earlier. His flushing has decreased and his heart rate has slowed. Oxygen saturations are better. He denies respiratory distress. Denies sore
throat.
Physical examination:
Head: Atraumatic and normocephalic
Eyes: Extraocular movements are intact and pupils are equal and reactive to light
Nose: Deviated septum, turbinate hypertrophy, no infection noted
Oral cavity/oropharynx: Uvula normal and mucosa shows no signs of infection
Ears: Normal
Cranial nerves II through XII: Intact
Thyroid gland: Normal to examination
Salivary glands: Normal
Voice: Mildly to moderately hoarse
Procedure: Flexible laryngoscopy performed at bedside
Hypopharynx/larynx were evaluated with a flexible laryngoscope through the patient's left nose after topical anesthesia using viscous lidocaine. The patient tolerated this well. He has good vocal cord motion and there is no airway compromise
although there is a little bit of swelling in the posterior glottic tissues. No infection was noted. No suspicious lesions were seen.
Impression/plan: This 69-year-old gentleman suffered an allergic reaction to bee stings. He experienced 3 bee stings yesterday afternoon. He experienced an immediate reaction and did better after intravenous Solu-Medrol at [facility]
but experienced a late reaction today and was treated at [facility]. He is feeling better and his heart rate has decreased. Oxygen saturations have improved over 90%. Airway looks okay at this point. He should be okay to go home with a
Medrol Dosepak. I will plan on seeing her back in the office as needed.
Consultation
-
Date/Time Consultation Requested: 03/12/25 1pm
Date/Time Consultation Performed: 03/12/25 315pm
Requesting Provider: ER
Performing Provider: Alvin
Reason for Consultation: airway swelling, allergic reaction
== END 2025-03-12 16:00 | disposition home or self-care (01) ==
LOC: EMR 11:26
PROVIDERS: CONSULT PHYSICIAN Otolaryngology Facial Plastic Surgery; EMERGENCY PHYSICIAN Emergency Medicine; FAMILY PHYSICIAN Internal Medicine Geriatric Medicine
DX: T63.441A Toxic effect of venom of bees, accidental (unintentional), initial encounter (principal); R06.02 Shortness of breath; C61 Malignant neoplasm of prostate; Z88.1 Allergy status to other antibiotic agents; Z79.899 Other long term (current) drug therapy
CPT/HCPCS: 96374; 96375; 96376; 96372; 99284; 80053; 85025; 93005

== ENCOUNTER → 2025-04-06 07:02 | Outpatient (REF) | payer MEDICARE, SELFPAY ==
[2025-04-06 08:45] LABS: ALT (SGPT) 39 U/L (0-50); AST (SGOT) 28 U/L (17-59); Albumin 5.0 g/dl (3.5-5.0); Alkaline Phosphatase 65 U/L (38-126); HDL Cholesterol 49 mg/dl; LDL Cholesterol, Calculated 86 mg/dl; Total Protein 7.4 g/dl (6.3-8.2); Very Low Density Lipoprotein 23 mg/dl (0-30)
== END ==
LOC: REG 07:02
PROVIDERS: ATTENDING PHYSICIAN Internal Medicine Interventional Cardiology
DX: E78.5 Hyperlipidemia, unspecified (principal)
CPT/HCPCS: 36415; 80061; 80076

== ENCOUNTER → 2025-04-20 09:23 | Outpatient (REF) | payer MEDICARE, SELFPAY ==
[2025-04-20 09:58] LABS: Hematocrit 46.7 % (39.0-52.0); Hemoglobin 15.6 g/dL (13.0-18.0); Mean Corp Hgb Conc. 33.4 g/dL (33.0-37.0); Mean Corpuscular Volume 91.0 fL (80.0-94.0); Nucleated Red Blood Cells % 0 % (-); Platelet Count 153 10^3/uL (130-400); Red Cell Dist. Width 12.3 % (11.5-14.5)
[2025-04-20 11:42] LABS: ALT (SGPT) 32 U/L (0-50); AST (SGOT) 29 U/L (17-59); Albumin 4.8 g/dl (3.5-5.0); Alkaline Phosphatase 67 U/L (38-126); Blood Urea Nitrogen 14 mg/dl (9-20); Calcium 9.8 mg/dl (8.4-10.2); Carbon Dioxide 29 mmol/L (22-30); Chloride 107 mmol/L (98-107); Glucose 122 mg/dl (70-99); Potassium 4.4 mmol/L (3.5-5.1); Sodium 144 mmol/L (135-145); Total Protein 7.2 g/dl (6.3-8.2); eGFR > 60.00
[2025-04-20 12:14] LABS: LDH 186 U/L (120-246)
== END ==
LOC: REG 09:23
PROVIDERS: ATTENDING PHYSICIAN Internal Medicine Hematology & Oncology; REFERRING PHYSICIAN Internal Medicine Geriatric Medicine
DX: D68.9 Coagulation defect, unspecified (principal); D47.2 Monoclonal gammopathy; Z87.892 Personal history of anaphylaxis
CPT/HCPCS: 36415; 80053; 82232; 82784; 83521; 83615; 84155; 84165; 85025; 86334

== ENCOUNTER → 2025-04-28 14:11 | Outpatient (REF) | payer MEDICARE, SELFPAY | LOC: MRI 14:11 | PROVIDERS: ATTENDING PHYSICIAN Internal Medicine; FAMILY PHYSICIAN Internal Medicine Geriatric Medicine | DX: K76.0 Fatty (change of) liver, not elsewhere classified (principal) | CPT/HCPCS: 74181; 76391 ==

== ENCOUNTER → 2025-05-19 10:00 | Outpatient (REF) | payer MEDICARE, SELFPAY ==
[2025-05-19 11:49] LABS: Hematocrit 47.9 % (39.0-52.0); Hemoglobin 16.2 g/dL (13.0-18.0); Mean Corp Hgb Conc. 33.8 g/dL (33.0-37.0); Mean Corpuscular Volume 90.5 fL (80.0-94.0); Nucleated Red Blood Cells % 0 % (-); Platelet Count 155 10^3/uL (130-400); Red Cell Dist. Width 12.2 % (11.5-14.5)
[2025-05-19 12:51] LABS: PSA, Total - Diagnostic < 0.06 ng/ml (0.0-4.0)
[2025-05-21 00:13] LABS: Honeybee Venom <0.10 kU/L (<=0.34); White-Faced Hornet 0.12 kU/L (<=0.34); Yellow Jacket Venom 0.90 kU/L (<=0.34); Yellow-Faced Hornet <0.10 kU/L (<=0.34)
== END ==
LOC: REG 10:00
PROVIDERS: ATTENDING PHYSICIAN Specialist; FAMILY PHYSICIAN Internal Medicine Geriatric Medicine; REFERRING PHYSICIAN Internal Medicine
DX: T63.45 Toxic effect of venom of hornets (principal); T78.2XXA Anaphylactic shock, unspecified, initial encounter; C61 Malignant neoplasm of prostate
CPT/HCPCS: 36415; 83520; 84153; 85025; 86003

== ENCOUNTER → 2025-07-08 07:17 | Outpatient (REF) | payer MEDICARE, SELFPAY ==
[2025-07-08 08:04] LABS: Hematocrit 46.4 % (39.0-52.0); Hemoglobin 16.0 g/dL (13.0-18.0); Mean Corp Hgb Conc. 34.5 g/dL (33.0-37.0); Mean Corpuscular Volume 89.7 fL (80.0-94.0); Nucleated Red Blood Cells % 0 % (-); Platelet Count 155 10^3/uL (130-400); Red Cell Dist. Width 12.0 % (11.5-14.5)
[2025-07-08 08:43] LABS: ALT (SGPT) 41 U/L (0-50); AST (SGOT) 31 U/L (17-59); Albumin 5.1 g/dl (3.5-5.0); Alkaline Phosphatase 66 U/L (38-126); Blood Urea Nitrogen 20 mg/dl (9-20); Calcium 10.3 mg/dl (8.4-10.2); Carbon Dioxide 28 mmol/L (22-30); Chloride 104 mmol/L (98-107); Glucose 103 mg/dl (70-99); HDL Cholesterol 54 mg/dl; LDH 178 U/L (120-246); LDL Cholesterol, Calculated 79 mg/dl; Potassium 4.5 mmol/L (3.5-5.1); Sodium 138 mmol/L (135-145); Very Low Density Lipoprotein 22 mg/dl (0-30); eGFR > 60.00
[2025-07-08 09:09] LABS: Total Protein 8.0 g/dl (6.3-8.2)
== END ==
LOC: REG 07:17
PROVIDERS: ATTENDING PHYSICIAN Internal Medicine Hematology & Oncology; FAMILY PHYSICIAN Internal Medicine Geriatric Medicine
DX: D68.9 Coagulation defect, unspecified (principal); D47.2 Monoclonal gammopathy; Z87.892 Personal history of anaphylaxis; E78.00 Pure hypercholesterolemia, unspecified
CPT/HCPCS: 36415; 80053; 80061; 82232; 82784; 83521; 83615; 84155; 84165; 85025; 86334